=== PATIENT | female | born 1975 | race Caucasian/White ===

== ENCOUNTER 2020-11-15 03:12 | Emergency (ER) | payer OTHER ==
[~2020-11-15] VITALS: Ht 154.9 cm; Wt 98.9 kg
[2020-11-15] MEDS ORDERED: AMOXICILLIN500 MG (03:31)
--- NOTE | 2020-11-17 21:26 | EKG ---
[facility] [address] [facility] [place], [place] [address] Signed Sinus tachycardia Low voltage QRS Borderline ECG No previous ECGs available Confirmed by JOSELITO VITALE DO ([id number]) on 11/17/2020 9:26:07 PM Electronically Signed By: JOSELITO VITALE DO 11/17/202125 PATIENT NAME: KAYODE ERVIN LONNIE Electrocardiogram DATE OF : 71 PHYSICIAN: JOSELITO VITALE DO REPORT #: [id number] REPORT IS CONFIDENTIAL AND NOT TO BE RELEASED WITHOUT AUTHORIZATION
== END 2020-11-15 05:30 | disposition home or self-care (01) ==
LOC: ED 03:12
DX: R10.30 Lower abdominal pain, unspecified (principal); D64.9 Anemia, unspecified; I10 Essential (primary) hypertension; Z88.0 Allergy status to penicillin
CPT/HCPCS: 80053; 81001; 83690; 84703; 85025; 93005; 93010; 99284-25; J7030